=== PATIENT | female | born 1960 | race Caucasian/White ===

== ENCOUNTER 2021-05-05 12:42 | Outpatient (REF) | payer BC, SELFPAY ==
[2021-05-05 13:53] LABS: Appearance Urine HAZY; Color Urine STRAW; Glucose Urine UA NEG (NEG); Leukocyte Esterase Urine 3+ (NEG); Nitrite Urine NEG (NEG); Specific Gravity - Urine <= 1.005 (1.005-1.025); UACC Culture Trigger YES; Urine Blood 3+ (NEG); Urine Ketones 15 MG/DL (NEG); Urine Protein NEG (NEG-TRACE)
[2021-05-05 14:09] LABS: Bacteria Urine 2+ /LPF; Squamous Epithelial Cell Urine TRACE /LPF; WBC Urine 50-75 /HPF (0-4)
== END 2021-05-05 12:43 | disposition home or self-care (01) ==
LOC: HO.LAB 12:42
PROVIDERS: PCP Internal Medicine; Visit Provider Internal Medicine
DX: R30.0 Dysuria (principal)
CPT/HCPCS: 81001; 87086; 87088; 87186

== ENCOUNTER 2023-11-09 08:27 | Outpatient (AMB) | payer OTHER, SELFPAY ==
--- NOTE | 2023-11-09 08:49 | MHC.OFFWIV ---
Intake Vital Signs 11/09/23 09:10 Height 5 ft 2 in Weight 109 lb BMI 19.9 BP 120/76 Blood Pressure Location Lt brachial Position Sitting Pulse 76 Pulse Source Pulse Oximeter Temp 97.4 F Temp Source Temporal Artery Scan Pulse Oximetry (%) 99 Oxygen Delivery Method Room Air Intake Visit Reasons: EP RT hand injury due to fall Intake Note: pt is here today for rt hand injury due to fall started yesterday Patient Tobacco Use Status: Never used Tobacco Allergies morphine [MORPHINE] Allergy (Unknown, Verified 11/09/23 09:13) UNKNOWN Sulfa (Sulfonamide Antibiotics) Allergy (Unknown, Verified 11/09/23 09:13) Unknown sulfamethoxazole [From BACTRIM] Allergy (Unknown, Verified 11/09/23 09:13) UNKNOWN trimethoprim [From BACTRIM] Allergy (Unknown, Verified 11/09/23 09:13) UNKNOWN Erythromycin Allergy (Unknown, Uncoded 11/09/23 09:13) Unknown Do you need a note to return to daycare/school/sports/work: No HPI EP RT hand injury due to fall HPI Details Patient is a 63-year-old female she fell yesterday Tripped and fell on cement walkway injured her right hand it was not stretch Now having pain when she moves her fingers On examination her right hand is slightly swollen posteriorly over metacarpal pharyngeal joint There is no skin lesions no ecchymosis She is able to move her fingers and fingers are note painful with palpation Moving wrist does causes soreness at that site of swelling Sensory is intact, radial pulses 2+ Patient is left-handed Patient already have a wrist splint to immobilize her metacarpophalangeal joint which is helping her I have ordered x-ray with the patient Further management after the x-ray report [facility] Social History Patient Tobacco Use Status: Never used Tobacco Review of Systems Const All systems reviewed & are unremarkable except as noted in HPI and below Physical Exam Vital Signs: Last Vital Signs Temp 97.4 F 11/09/23 09:10 Pulse 76 11/09/23 09:10 BP 120/76 11/09/23 09:10 Pulse Ox 99 11/09/23 09:10 Oxygen Delivery Method Room Air 11/09/23 09:10 BMI result Body Mass Index 19.9 Const General: no acute distress Orientation/consciousness: patient oriented x3 Eyes General: appearance normal, both eyes and all related structures Resp Effort & Inspection: normal respiratory effort and able to speak in complete sentences Auscultation: clear to auscultation bilaterally Neuro General: patient oriented x3 Extrem Hand/finger images: 1. Swelling compared to left, able to move fingers, no pain with finger palpation, patient is feeling soreness at the site of swelling with the movement of wrist, sensory intact No skin ecchymosis noted Radial pulse 2 + Psych Mental Status: mental status grossly normal Assessment & Plan Assessment & Plan (1) Hand injury: Code(s): S69.90XA - Unspecified injury of unspecified wrist, hand and finger(s), initial encounter Qualifiers: Encounter type: initial encounter Laterality: right Qualified Code(s): S69.91XA - Unspecified injury of right wrist, hand and finger(s), initial encounter Plan Patient is a 63-year-old female she fell yesterday Tripped and fell on cement walkway injured her right hand it was not stretch Now having pain when she moves her fingers On examination her right hand is slightly swollen posteriorly over metacarpal pharyngeal joint There is no skin lesions no ecchymosis She is able to move her fingers and fingers are note painful with palpation Moving wrist does causes soreness at that site of swelling Sensory is intact, radial pulses 2+ Patient is left-handed Patient already have a wrist splint to immobilize her metacarpophalangeal joint which is helping her I have ordered x-ray with the patient Further management after the x-ray report Orders: Orders XR hand RT 2V Today S69.90XA - Unspecified injury of unspecified wrist, hand and finger(s), initial encounter Medications: Discontinued nitrofurantoin macrocrystal must administer with a meal/food Discontinued Reason: Patient no longer taking 100 mg PO Q12H 10 days 20 caps 0RF Coding Level of Care Code Est Pt Level 3 (71851) Diagnoses Injury of right hand, initial encounter S69.91XA Encounter type: initial encounter Laterality: right
[2023-11-09 09:10] VITALS: BP 120/76; PULSE 76; TEMP 36.3; O2SAT 99; BMI 19.9
== END 2023-11-09 09:53 | disposition home or self-care (01) ==
PROVIDERS: PCP Registered Nurse; Visit Provider Internal Medicine
DX: S69.91XA Unspecified injury of right wrist, hand and finger(s), initial encounter (principal)
CPT/HCPCS: 99213

== ENCOUNTER 2023-11-09 09:19 | Outpatient (REF) | payer OTHER, SELFPAY ==
--- NOTE | ~2023-11-09 | XR_ITS ---
EXAMINATION: XR HAND, RIGHT CLINICAL INFORMATION: Unspecified injury COMPARISON: None available. TECHNIQUE: PA, lateral, and oblique views of the right hand. FINDINGS: There is a nondisplaced spiral fracture through the shaft of the fourth metacarpal. The carpal metacarpal junction as well as the fourth MCP joints are not affected. No other fractures are seen. Carpal alignment is preserved. XR/XR hand RT 2V IMPRESSION: Fourth metacarpal fracture.
== END 2023-11-09 09:20 | disposition home or self-care (01) ==
LOC: HO.HMGCX 09:19
PROVIDERS: PCP Internal Medicine; Visit Provider Internal Medicine
DX: S69.90XA Unspecified injury of unspecified wrist, hand and finger(s), initial encounter (principal)
CPT/HCPCS: 73120

== ENCOUNTER 2023-11-15 12:46 | Outpatient (AMB) | payer OTHER, SELFPAY ==
--- NOTE | 2023-11-15 12:48 | A.OFFVIS_ITS ---
Vital Signs 11/15/23 12:50 Height 5 ft 2 in Weight 109 lb BMI 19.9 Handedness Left Intake Visit Reasons: fracture of unspecified metacarpal bone Intake Note: Diana is a 63 year old left hand dominant female presents today s/p tripping and falling in cement on 11/08/23. States she was getting her mail, stepped down off porch and rolled ankle and fell landing on her left hand. She was seen at [facility] in [place] on 11/09/23 where x-rays were taken. Patient has her own brace which was advised to be worn by the walk in clinic. Brace offers relief when on. She is unable to make a full closed fist. She is currently complaining of pain when she moves her 4th and 5th fingers. Denies numbness and tingling. Allergies morphine [MORPHINE] Allergy (Unknown, Verified 11/15/23 12:59) UNKNOWN Sulfa (Sulfonamide Antibiotics) Allergy (Unknown, Verified 11/15/23 12:59) Unknown sulfamethoxazole [From BACTRIM] Allergy (Unknown, Verified 11/15/23 12:59) UNKNOWN trimethoprim [From BACTRIM] Allergy (Unknown, Verified 11/15/23 12:59) UNKNOWN Erythromycin Allergy (Unknown, Uncoded 11/09/23 09:13) Unknown HPI HPI fracture of unspecified metacarpal bone: Details: Diana is a 63 year old right hand dominant woman who presents to discuss her right hand fracture after a fall, DOI: 11/08/23. She is seen today wearing a velcro wrist splint. She complains of pain when moving her fingers, particularly the ring & small fingers. She says she is not able to bring all her fingers into a fist. She denies any numbness or tingling. 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 She says most of her job is lightweight and involves computer use. She does not need a work note. 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 Review of Systems Const All systems reviewed & are unremarkable except as noted in HPI and below Physical Exam Vital Signs: BMI result Body Mass Index 19.9 Const General: cooperative, healthy appearing and no acute distress Orientation/consciousness: patient oriented x3 HEENT Head: Yes normocephalic and Yes atraumatic Eyes EOM: EOMs intact bilaterally Resp Effort & Inspection: normal respiratory effort and able to speak in complete sentences Cardio Jugular venous distension: no JVD Skin General skin exam: turgor normal Rashes: no rashes Neuro General: patient oriented x3 Extrem Other: Evaluation of Right Upper Extremity: The patient is alert, oriented, and in no acute distress Neuro: Median, Ulnar, Radial nerves motor and sensory intact and sensation is normal to the tips of all digits She has some resolving ecchymosis in her right palm, and only a small amount of swelling now. She does have her mother's wedding ring on the ring finger of her right hand. Evidently was quite a bit tighter before but as of now it can be turned fairly easily and is not terribly tight. She is tender to palpation directly over the 4th metacarpal shaft. No tenderness over the adjacent metacarpals, the fingers, over the wrist including the snuffbox and scaphoid tubercle. Smooth and painless wrist range of motion With encouragement I was able to get her to bring her fingers close to a weak fist and then back into extension. No rotational malalignment at this time Radiographs: 3 views of the right hand from 11/09/23, and new radiographs from today were reviewed by me today in clinic. They show a minimally displaced long spiral oblique 4th metacarpal shaft fracture, with satisfactory fracture alignment. No appreciable change in alignment on today's radiographs. Psych Appearance: grossly normal Affect: normal affect Attitude: cooperative Office Procedures Fracture Care Details: Fracture care [id number] Fracture Billing Code: Fracture Billing Code Assessment & Plan Assessment & Plan (1) Fracture of shaft of fourth metacarpal bone of right hand: Code(s): S62.324A - Displaced fracture of shaft of fourth metacarpal bone, right hand, initial encounter for closed fracture Category: Medical Plan Assessment & Plan: 1. Right 4th metacarpal shaft fracture, spiral oblique, minimally displaced From a fall, DOI: 11/08/23 I educated her about this condition I discussed operative and non-operative treatment options I recommend we manage this conservatively with splinting and selvin taping. I discussed activity modification, she is to lift nothing heavier than a cellphone for the next 4 weeks. She will work on gentle finger ROM exercises She is heading down to [employer] on Tuesday. I encouraged her to wear her selvin tape in her splint, and to be careful with her activities. 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 She has continued to work and does not require a note for work. She will follow up in 3 weeks, with X-rays 3V R hand if she has any concerns Scribed for Swapna Hill MD by Adam Wray, medical assembly, on 11/15/23 at 1:10 PM, EST. Orders: Orders XR hand RT min 3V Today M79.641 - Pain in right hand Coding Level of Care Code New Pt Level 4 (60630) Diagnoses Fracture of shaft of fourth metacarpal bone of right hand S62.324A CPT Codes Fracture Care - Fracture Billing Code: Fracture Billing Code ([id number])
[2023-11-15 12:50] VITALS: BMI 19.9
== END 2023-11-15 13:24 | disposition home or self-care (01) ==
LOC: HO.HOS 12:46
PROVIDERS: PCP Internal Medicine; Visit Provider Orthopaedic Surgery
DX: S62.324A Displaced fracture of shaft of fourth metacarpal bone, right hand, initial encounter for closed fracture (principal)
CPT/HCPCS: 26600; 99204

== ENCOUNTER 2023-11-15 12:46 | Outpatient (REF) | payer OTHER, SELFPAY ==
--- NOTE | ~2023-11-15 | XR_ITS ---
EXAMINATION: XR HAND, RIGHT CLINICAL INFORMATION: Pain in right hand COMPARISON: None available. TECHNIQUE: PA, lateral, and oblique views of the right hand. FINDINGS: There is a nondisplaced comminuted fracture of the shaft of the fourth metacarpal. Nonspecific cystic changes seen in the middle phalanx of the ring finger. Joint spaces are maintained. No erosions or soft tissue calcifications. XR/XR hand RT min 3V IMPRESSION: Nondisplaced comminuted fracture of the shaft of the fourth metacarpal.
== END 2023-11-15 12:47 | disposition home or self-care (01) ==
LOC: HO.HOSX 12:46
PROVIDERS: PCP Internal Medicine; Visit Provider Orthopaedic Surgery
DX: S62.324A Displaced fracture of shaft of fourth metacarpal bone, right hand, initial encounter for closed fracture (principal)
CPT/HCPCS: 26600; 73130

== ENCOUNTER 2023-12-07 09:06 | Outpatient (AMB) | payer OTHER, SELFPAY ==
--- NOTE | 2023-12-07 09:26 | A.OFFVIS_ITS ---
Intake Visit Reasons: OV- right 4th metacarpal fx, 11/08/23 Intake Note: Diana is a 63 yr old left hand dominant female presents today for her follow up visit for a ROM check for her Fracture of shaft of fourth metacarpal bone of right hand DOI 11/08/23. States she is getting better, however she was in a lot of pain on Tuesday. Patient reports that her ROM has gotten a little better. Allergies morphine [MORPHINE] Allergy (Unknown, Verified 11/15/23 12:59) UNKNOWN Sulfa (Sulfonamide Antibiotics) Allergy (Unknown, Verified 11/15/23 12:59) Unknown sulfamethoxazole [From BACTRIM] Allergy (Unknown, Verified 11/15/23 12:59) UNKNOWN trimethoprim [From BACTRIM] Allergy (Unknown, Verified 11/15/23 12:59) UNKNOWN Erythromycin Allergy (Unknown, Uncoded 11/09/23 09:13) Unknown HPI HPI OV- right 4th metacarpal fx, 11/08/23: Details: Diana is a 63 year old right hand dominant woman who returns to discuss her right 4th metacarpal shaft fracture, S/P fall, DOI: 11/08/23. She works in for [employer] & prior authorization. She says most of her job is lightweight and involves computer use. She does not need a work note. She says she is doing well, but had increased pain this past Tuesday night. She says her pain resolved by the next morning and she has been doing well. She has been working on gentle ROM exercises and feels she has improved somewhat She has been Andre-taping her fingers, as instructed She denies any numbness or tingling. 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 They show a minimally displaced long spiral oblique 4th metacarpal shaft fracture, with satisfactory fracture alignment & some evidence of interval bony healing. No appreciable change in alignment on today's radiographs. Assessment & Plan Assessment & Plan (1) Fracture of shaft of fourth metacarpal bone of right hand: Code(s): S62.324A - Displaced fracture of shaft of fourth metacarpal bone, right hand, initial encounter for closed fracture Category: Medical Plan Assessment & Plan: 1. Right 4th metacarpal shaft fracture, spiral oblique, minimally displaced From a fall, DOI: 11/08/23 I educated her about this condition She appears to be doing well. I discussed activity modification, she is able to begin using her hand for lightweight activities, but should continue to avoid any medium or heavy-weight activities for the next few weeks. She will continue to Andre-tape her fingers with daytime activities, she can remove this when at home, at rest or at night, for the next 2 weeks. She works here at [employer] in the PT department taking care of insurance prior authorization etc.. She has continued to work and does not require a note for work. She can follow up prn. She has happy with the current plan Scribed for Swapna Hill MD by Adam Wray, medical lab specialist, on 12/07/23 at 10:00 AM, EST. Orders: Orders XR hand RT min 3V Today M79.641 - Pain in right hand Coding Level of Care Code Global (78580) Diagnoses Fracture of shaft of fourth metacarpal bone of right hand S62.324A
== END 2023-12-07 10:25 | disposition home or self-care (01) ==
PROVIDERS: PCP Internal Medicine; Visit Provider Orthopaedic Surgery
DX: S62.324A Displaced fracture of shaft of fourth metacarpal bone, right hand, initial encounter for closed fracture (principal)
CPT/HCPCS: 99024

== ENCOUNTER 2023-12-07 09:06 | Outpatient (REF) | payer OTHER, SELFPAY ==
--- NOTE | ~2023-12-07 | XR_ITS ---
EXAMINATION: XR HAND, RIGHT CLINICAL INFORMATION: Pain in right hand, adjacent 4th metacarpal. Patient unable to remove ring from the 4th digit. COMPARISON: November 15, 2023 TECHNIQUE: PA, lateral, and oblique views of the right hand. FINDINGS: The bones are diffusely demineralized. Redemonstration of a comminuted fracture of the shaft of the 4th metacarpal with increased mild impaction/override. There is evidence of some bridging callus formation. XR/XR hand RT min 3V IMPRESSION: Redemonstration of a comminuted fracture of the shaft of the 4th metacarpal with increased mild impaction/override. There is evidence of some bridging callus formation.
== END 2023-12-07 09:07 | disposition home or self-care (01) ==
LOC: HO.HOSX 09:06
PROVIDERS: PCP Internal Medicine; Visit Provider Orthopaedic Surgery
DX: S62.324A Displaced fracture of shaft of fourth metacarpal bone, right hand, initial encounter for closed fracture (principal)
CPT/HCPCS: 73130

== ENCOUNTER 2023-12-26 09:01 | Outpatient (AMB) | payer OTHER, SELFPAY ==
--- NOTE | 2023-12-26 09:17 | MHC.PC.OV ---
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 Required: No Accompanied by: Self / Same As Patient Allergies morphine [MORPHINE] Allergy (Unknown, Verified 12/26/23 09:50) UNKNOWN Sulfa (Sulfonamide Antibiotics) Allergy (Unknown, Verified 12/26/23 09:50) Unknown sulfamethoxazole [From BACTRIM] Allergy (Unknown, Verified 12/26/23 09:50) UNKNOWN trimethoprim [From BACTRIM] Allergy (Unknown, Verified 12/26/23 09:50) UNKNOWN Erythromycin Allergy (Unknown, Uncoded 11/09/23 09:13) Unknown Tobacco use date assessed: 12/26/23 Dental Screening Dental Screen Date: 12/26/23 Did you have a dental visit in the last 12 months?: Yes Did you have a dental problem in the last 6 months where you did not have access to dental care?: No Was dental information given to patient?: Patient has dentist HPI HPI Comments History of Present Illness Details Azucena 63-year-old female with Vitamin d def, otherwise healthy Status post fracture of shaft of 4th metacarpal bone of right hand, fracture of metacarpal of right hand, cholecystectomy Health Maintenance: Colon last one was 10 years, reports it was normal. Does not want another one done d/t gas chest pain. Willing to do cologaurd. Mammo declined further imaging d/t fibrodense breasts; will look into Thermograms. PAP 2022 normal DEXA had one years ago, normal. Menopause age 40 we will wait on vitamin-D results. If abnormal we will consider reordering. Otherwise we will hold off at this time Tdap declines Specialists: Ortho Here today to establish care. Coming from [facility], no records available to me today. Had a fall in October and fractured her right hand and sprained her right ankle. While her hand is recovering well, supported by the orthopedic group, she continues to have right ankle and foot pain. Has edema on the top of her right foot after walking. He is very active. We will be going to [place] in February and wants to make sure that her foot and ankle are in good shape. Would like a referral to Physical therapy for further evaluation and treatment. Using bio identical hormones, from [facility] -- needs to refill. We will get me the information needed to send this refill in. Interested in routine lab screening. [facility] Medical History (Updated 12/26/23 @ 10:45 by Miriam Tim, [facility]) No pertinent past medical history Surgical History History of cholecystectomy Social History (Updated 12/26/23 @ 09:26 by Marylou Craig [facility]) Household Members: Spouse Both parents involved: No Caregiver staying overnight: No Housing: House Are you a primary care transition coordinator to a significant other at home: No Do you presently have visiting nurse or other home services: No 75 years or older and lives alone: No Alcohol intake: never Patient Tobacco Use Status: Never used Tobacco e-Cigarette/Vaping Use: Never Used service: No Current occupational status: employed 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 1. Little interest or pleasure in doing things: not at all 2. Feeling down, depressed, or hopeless: not at all 3. Trouble falling or staying asleep, or sleeping too much: not at all 4. Feeling tired or having little energy: not at all 5. Poor appetite or overeating: not at all 6. Feeling bad about yourself - or that you are a failure or have let yourself or your family down: not at all 7. Trouble concentrating on things, such as reading the newspaper or watching television: not at all 8. Moving or speaking so slowly that other people could have noticed. Or the opposite - being so fidgety or restless that you have been moving around a lot more than usual: not at all 9. Thoughts that you would be better off or of hurting yourself in some way: not at all Total score: 0 Depression Screening Interpretation: Negative Depression Screening Done: Yes 95263 - PHQ-9 Billing: Yes Source: Developed by Drs. Flavio Hanson, Arturo Montoya and colleagues, with an educational gabi from [employer]. Thrive Questionnaire Date Thrive assessed: 12/26/23 I am a: Patient What is your living situation today?: I have a steady place to live Within the past 12 months, did the food you bought not last and you didn't have the money to get more?: Never true Within the past 12 months, did you worry whether your food would run out before you got money to buy more?: Never true Do you have trouble paying for medicines?: No Do you have trouble getting transportation to medical appointments?: No Do you have trouble paying your heating and electricity bill?: No Do you have trouble taking care of your child, family member or friend?: No Do you have trouble with day-to-day activities such as bathing, preparing meals, shopping, managing finances, etc.?: No Are you currently unemployed and looking for a job?: No Are you interested in more education?: No Please select the resources that you would like help with: None Currently or been in a relationship where the following occur: no concerns reported THRIVE Score: 0 AUDIT C Alcohol Use Questionnaire (AUDIT-C) 1. How often do you have a drink containing alcohol?: Never 3. How often do you have six or more drinks on one occasion?: Never Total Score: 0 Score Reviewed/Action Taken: Yes GRACY-7 AMB Questionnaire GRACY-7 Date GRACY - 7 assessed: 12/26/23 Feeling nervous, anxious, or on edge: 0 = Not at all Not being able to stop or control worryin = Not at all Worrying too much about different things: 0 = Not at all Trouble relaxin = Not at all Being so restless that it is hard to sit still: 0 = Not at all Becoming easily annoyed or irritable: 0 = Not at all Feeling afraid as if something awful might happen: 0 = Not at all Total GRACY-7 score (0-4 normal; 5-9 mild; 10-14 moderate; 15-21 severe): 0 Source: Developed by Drs. Flavio Hanson, Arturo Montoya and colleagues, with an educational gabi from [employer]. Review of Systems Const All systems reviewed & are unremarkable except as noted in HPI and below Physical exam (Primary Care) Vital Signs: Last Vital Signs Temp 9.7 F L 12/26/23 09:18 Pulse 62 12/26/23 09:18 Resp 14 12/26/23 09:18 BP 116/62 12/26/23 09:18 Pulse Ox 99 12/26/23 09:18 Oxygen Delivery Method Room Air 12/26/23 09:18 BMI result Body Mass Index 20.3 Tobacco/Smoking Status: Tobacco use Status Tobacco use date assessed 12/26/23 12/26/23 09:27 Patient Tobacco Use Status Never used Tobacco 12/26/23 09:26 e-Cigarette/Vaping Use Never Used 12/26/23 09:27 PHQ-9: PHQ-9 Score PHQ-9: Total score 0 12/26/23 10:17 Depression Screening Interpretation: Negative Thrive Assessment: Date of Thrive Assessment Date Thrive assessed 12/26/23 12/26/23 09:27 Currently or been in a relationship where the following occur: no concerns reported Const Other: Awake alert oriented, pleasant Mucous membranes moist Regular rate and rhythm Lung sounds clear to auscultation bilat No edema bilateral lower extremities Assessment and Plan Assessment & Plan (1) Right foot pain: Code(s): M79.671 - Pain in right foot (2) Right ankle pain: Code(s): M25.571 - Pain in right ankle and joints of right foot Qualifiers: Chronicity: chronic Qualified Code(s): M25.571 - Pain in right ankle and joints of right foot; G89.29 - Other chronic pain (3) Laboratory exam ordered as part of routine general medical examination: Code(s): Z00.00 - Encounter for general adult medical examination without abnormal findings Plan: This note is constructed using voice recognition software. While every effort has been made to ensure accuracy in resource development manager, still errors may have been included Sometimes, these errors may affect the content or meaning of the given sentence . Total time spent caring for the patient today was 40 minutes. This includes time spent before the visit reviewing the chart, time spent during the visit, and time spent after the visit on documentation Orders: Orders PT Evaluation and Treatment Today M25.571 - Pain in right ankle and joints of right foot, M79.671 - Pain in right foot Comprehensive [place]. Panel Fast Today Z00.00 - Encounter for general adult medical examination without abnormal findings Hemoglobin A1c Today Z00.00 - Encounter for general adult medical examination without abnormal findings Microalbumin, Random (w Creat) Today Z00.00 - Encounter for general adult medical examination without abnormal findings Vitamin B12 and Folate Today Z00.00 - Encounter for general adult medical examination without abnormal findings IRON PROFILE Today Z00.00 - Encounter for general adult medical examination without abnormal findings Lipid Panel Today Z00.00 - Encounter for general adult medical examination without abnormal findings TSH reflex Free T4 Today Z00.00 - Encounter for general adult medical examination without abnormal findings Vitamin D 1,25 dihydroxy Today Z00.00 - Encounter for general adult medical examination without abnormal findings Complete Blood Count no Diff Today Z00.00 - Encounter for general adult medical examination without abnormal findings Referrals Cologuard Test Z12.11 - Encounter for screening for malignant neoplasm of colon, Z12.12 - Encounter for screening for malignant neoplasm of rectum Patient Instructions: Please request records from [facility] to be sent to me for review. Cologuard test ordered today. We will consider a bone density once your vitamin-D levels are back. If deficient we will encourage this screening for osteoporosis. Fasting labs for generalized screening ordered. Declined Tdap, mammogram, colonoscopy. Interested in thermogram for breast screening and we will get me information on this. Please get me the information for your bio identical hormones so that i may refill this for you as well. Physical therapy order placed today for evaluation and treatment of the right foot and ankle pain. Return to office in about 4 weeks for lab review and a complete physical exam. Sooner as needed. Review Patient declined Mammogram: 12/26/23 Patient declined Colonoscopy: 12/26/23 Declined TDap/Td: 12/26/23 Coding Level of Care Code Est Pt Level 5 (01911) Diagnoses Right foot pain M79.671 Chronic pain of right ankle M25.571; G89.29 Chronicity: chronic Laboratory exam ordered as part of routine general medical examination Z00.00
[2023-12-26 09:18] VITALS: BP 116/62; PULSE 62; RESP 14; TEMP -12.4; TEMP 9.7; O2SAT 99; BMI 20.3
== END 2023-12-26 09:59 | disposition home or self-care (01) ==
PROVIDERS: PCP Nurse Practitioner Family; Visit Provider Nurse Practitioner Family
DX: M25.571 Pain in right ankle and joints of right foot (principal); G89.29 Other chronic pain
CPT/HCPCS: 99215

== ENCOUNTER 2023-12-29 06:39 | Outpatient (REF) | payer OTHER, SELFPAY ==
[2023-12-29 07:40] LABS: Hemoglobin 13.8 g/dl (12.0-16.0); Mean Corpuscular HGB Conc 32.9 g/dl (31.0-35.0); Mean Corpuscular Hemoglobin 28.6 pg (27.0-33.0); Mean Corpuscular Volume 87.1 fL (80.0-98.0); Mean Platelet Volume 10.4 fL (9.4-12.3); Platelet Count 150 X10*3/uL (160-400); Red Blood Count 4.82 X10*6/uL (4.20-5.50); Red Cell Distribution Width 12.3 % (11.0-16.0); White Blood Count 3.4 X10*3/uL (4.8-10.8)
[2023-12-29 07:52] LABS: Estimated Average Glucose 100 mg/dL; Hemoglobin A1c % 5.1 % (<6.0)
[2023-12-29 08:23] LABS: Alanine Aminotransferase 18 U/L (0-31); Albumin Level 4.1 g/dL (3.5-5.0); Alkaline Phosphatase 108 U/L (39-117); Anion Gap 10 (12-20); Aspartate Amino Transferase 22 U/L (5-31); Bilirubin Total 0.5 mg/dL (0.0-1.0); Blood Urea Nitrogen 15 mg/dL (9-16); Calcium 9.3 mg/dL (8.4-10.2); Carbon Dioxide 30 mmol/L (22-29); Chloride 107 mmol/L (96-108); Cholesterol 188 mg/dL (<200); Estimated Glomerular Filt Rate > 60; Glucose Fasting 90 mg/dL (60-99); HDL Cholesterol 62 mg/dL (>40); Iron 78 mcg/dL (30-160); LDL Cholesterol Calculated 114 mg/dL (<100); Percent Iron Saturation 24 % (15-50); Potassium 4.2 mmol/L (3.3-5.1); Sodium 143 mmol/L (135-145); Total Iron Binding Capacity 320 mcg/dL (228-428); Total Protein 6.6 g/dL (6.5-8.0); Triglycerides 60 mg/dL (<150); Unsaturated Iron Binding 242 ug/dL
[2023-12-29 08:39] LABS: TSH reflex Free T4 2.22 uIU/mL (0.32-4.0)
[2023-12-29 08:47] LABS: Folate 9.9 ng/mL (> or = 4.0); Vitamin B12 1123 pg/mL (200-900)
[2023-12-29 11:40] LABS: Creatinine Urine 126.32 mg/dL; Microalbum/Creatinine Ratio Ur 5.5 ug/mg cr (<30)
[2024-01-03 02:54] LABS: VITAMIN D (1,25 OH) D3 44 pg/mL; Vit D (1,25-Dihydroxy) Total 44 pg/mL (18-72); Vitamin D (1,25 OH) D2 <8 pg/mL
== END 2023-12-29 06:40 | disposition home or self-care (01) ==
LOC: HO.LAB 06:39
PROVIDERS: PCP Nurse Practitioner Family; Visit Provider Nurse Practitioner Family
DX: Z00.00 Encounter for general adult medical examination without abnormal findings (principal); Z13.89 Encounter for screening for other disorder; Z13.1 Encounter for screening for diabetes mellitus
CPT/HCPCS: 36415; 80053; 80061; 82043; 82570; 82607; 82652; 82746; 83036; 83540; 84443; 85027

== ENCOUNTER 2024-03-21 12:17 | Outpatient (AMB) | payer OTHER, SELFPAY ==
--- NOTE | 2024-03-21 12:18 | MHC.PC.OV ---
Vital Signs 03/21/24 12:20 Height 5 ft 2 in Weight 109 lb 2 oz BMI 20.0 BP 98/58 L Blood Pressure Location Lt brachial Position Sitting Respiration 14 Pulse 97 Pulse Source Pulse Oximeter Pulse Oximetry (%) 99 Oxygen Delivery Method Room Air Intake Visit Reasons: 4 weeks for CPE Intake Note: patient is here for a physical Allergies morphine [MORPHINE] Allergy (Unknown, Verified 03/21/24 12:54) UNKNOWN Sulfa (Sulfonamide Antibiotics) Allergy (Unknown, Verified 03/21/24 12:54) Unknown sulfamethoxazole [From BACTRIM] Allergy (Unknown, Verified 03/21/24 12:54) UNKNOWN trimethoprim [From BACTRIM] Allergy (Unknown, Verified 03/21/24 12:54) UNKNOWN Erythromycin Allergy (Unknown, Uncoded 11/09/23 09:13) Unknown Medication List - Last Reconciled 03/21/24 by DAT Lockhart- No Known Home Meds Tobacco use date assessed: 12/26/23 Dental Screening Dental Screen Date: 12/26/23 HPI HPI Comments History of Present Illness Details Azucena 63-year-old female with Vitamin d def, hemorrhoids, GERD, gluten sensitivity, sensitivity to anesthesia Status post fracture of shaft of 4th metacarpal bone of right hand, fracture of metacarpal of right hand, cholecystectomy Social: 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 Does not want another one done d/t gas chest pain. Willing to do cologaurd - pending. Mammo declined further imaging d/t fibrodense breasts; will look into Thermograms. PAP 2022 normal DEXA had one years ago, normal. Menopause age 40 , normal vitamin-D results. Tdap declines Specialists: Ortho Optho Here today for CPE Feels well. Making healthy choices. Right foot and ankle feeling better. Completed PT. Labs from 12/29/2023 shown low WBC 3.4, low platelet 150 otherwise normal CBC, normal CMP, hemoglobin A1c 5.1%, normal iron profile, total cholesterol 188, LDL 114, triglycerides 60, HDL 62, elevated B12 1123, normal vitamin-D, normal TSH and folate, normal urine microalbumin creatinine ratio Vit D2 low - d3 and total normal - no need for dexa (body making enough) Optho - appt tomorrow. Right eye tearing, last few months feels more so. Feels itchy, too. Wears glasses Skin - No worries. Diet - well balanced and healthy. Normal elimination patterns. Mood is good. Still looking into info for Thermogram and let me know. Was on PPI in the past for GERD. Found to be gluten sensitive. Avoids gluten in his feeling fine without PPI. Hemorrhoids are well controlled. She does report that she has sensitivity to anesthesia, reports it is something genetic as her father and 2 of her children have the same problem. Reports that they can not wake up once put under. Plan: Try Monona Bergamont for cholesterol and we can repeat your labs in the future. Although your lipids look good. Try to reduce b supplement to every other day as values are a little high. No needs for DEXA and Vit D looks great. Return to office in 4-6 months with repeat lipids done 1 week before, sooner as needed. [facility] [address] [place] [id number] Estriol/Estradiol/Progesterone 2/0.5/50mg/ml Apply 2 clicks 0.5ml transdermally twice per day 30ml This RX was printed and mailed home for you to send to the pharmacy. [facility] Medical History (Updated 03/21/24 @ 14:48 by [facility] Hand injury Fracture of metacarpal of right hand, closed Fracture of shaft of fourth metacarpal bone of right hand Right foot pain Right ankle pain No pertinent past medical history Surgical History History of cholecystectomy Social History (Updated 12/26/23 @ 09:26 by Marylou Craig [facility]) Household Members: Spouse Both parents involved: No Caregiver staying overnight: No Housing: House Are you a primary career coach to a significant other at home: No Do you presently have visiting nurse or other home services: No 75 years or older and lives alone: No Alcohol intake: never Patient Tobacco Use Status: Never used Tobacco e-Cigarette/Vaping Use: Never Used service: No Current occupational status: employed 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 Flavio Hanson, Marialuisa Bacon, Arturo Alonzo and colleagues, with an educational gabi from [employer]. Review of Systems Const Details: Constitutional: Denies fever. Skin: Denies rash. Eye: Denies eye pain. ENMT: Denies sore throat and nasal congestion. Respiratory: Denies shortness of breath and cough. Gastrointestinal: Denies nausea, vomiting or abdominal pain. Cardiovascular: Denies chest pain and syncope. Genitourinary: Denies dysuria. Musculoskeletal: Denies back pain and extremity pain. Neurologic: Denies headaches, confusion, and weakness. Psychiatric: Denies suicidal thoughts and substance abuse. Allergy/ Immunologic: Denies impaired immunity. Physical exam (Primary Care) Vital Signs: Last Vital Signs Pulse 97 03/21/24 12:20 Resp 14 03/21/24 12:20 BP 98/58 L 03/21/24 12:20 Pulse Ox 99 03/21/24 12:20 Oxygen Delivery Method Room Air 03/21/24 12:20 BMI result Body Mass Index 20.0 Tobacco/Smoking Status: Tobacco use Status Tobacco use date assessed 12/26/23 03/21/24 12:18 Patient Tobacco Use Status Never used Tobacco 03/21/24 12:18 e-Cigarette/Vaping Use Never Used 03/21/24 12:18 Thrive Assessment: Date of Thrive Assessment Date Thrive assessed 12/26/23 03/21/24 12:18 Const Other: General: Well developed, well nourished, in no acute distress. Appears stated age. Head: Normocephalic, atraumatic. Eyes: Pupils are equal, round and reactive to light and accommodation. Conjunctivae are clear. Vision grossly normal. Ears: TMs clear AU, EACS WNL Nose: Patent, without discharge. Mouth: There are no ulcers or lesions noted. No inflammation, no post nasal drip, no plaques nor exudates. Neck: Supple, no adenopathy or thyromegaly. Lungs: Clear to auscultation bilaterally. No rales, rhonchi or wheeze noted. Good air flow in all [place]. Heart: Regular rate and rhythm. No murmurs, click, rubs or gallops are noted. Abdomen: Bowel sounds present in all quadrants. The abdomen is soft, nontender, with no masses or organomegaly noted. No hernias are noted. Musculoskeletal: Joints are nontender, without swelling, redness, or effusions. Range of motion is observed to be normal. Pulses: Peripheral pulses are equal and palpable bilaterally. Extremities: No clubbing, cyanosis nor edema is noted. Neurologic: Gait and station normal. Cranial Nerves 2-12 intact. Motor strength grossly symmetrical and intact. No sensory loss. Balance normal. Skin: No rashes, ulcers, or lesions noted. Turgor is good. Skin color is good. Hair and nails are without abnormalities. Psych: Normal eye contact, affect and mood appropriate, and normal interactions. Patient is alert and appropriate to context. Assessment and Plan Assessment & Plan (1) Encounter for general adult medical examination without abnormal findings: Code(s): Z00.00 - Encounter for general adult medical examination without abnormal findings (2) Borderline high cholesterol: Code(s): E78.9 - Disorder of lipoprotein metabolism, unspecified (3) Menopause: Code(s): Z78.0 - Asymptomatic menopausal state (4) GERD without esophagitis: Code(s): K21.9 - Gastro-esophageal reflux disease without esophagitis (5) NCGS (non-celiac gluten sensitivity): Code(s): K90.41 - Non-celiac gluten sensitivity (6) Anesthesia complication: Code(s): T88.59XA - Other complications of anesthesia, initial encounter Qualifiers: Encounter type: sequela Qualified Code(s): T88.59XS - Other complications of anesthesia, sequela Orders: Orders Lipid Panel 08/12/24 E78.9 - Disorder of lipoprotein metabolism, unspecified Medications: New [Estriol/Estradiol/Progesterone] Estriol/Estradiol/Progesterone 2/0.5/50mg/ml Apply 2 clicks 0.5ml transdermally twice per day 30ml 0.5 mL transdermal BID 30 days 30 mL 11RF Coding Level of Care Code Est Pt Prev Care 40-64y(84491) Diagnoses Encounter for general adult medical examination without abnormal findings Z00.00 Borderline high cholesterol E78.9 Menopause Z78.0 GERD without esophagitis K21.9 NCGS (non-celiac gluten sensitivity) K90.41 Complication of anesthesia, sequela T88.59XS Encounter type: sequela
[2024-03-21 12:20] VITALS: BP 98/58; PULSE 97; RESP 14; O2SAT 99
== END 2024-03-21 13:25 | disposition home or self-care (01) ==
PROVIDERS: PCP Nurse Practitioner Family; Visit Provider Nurse Practitioner Family
DX: Z00.00 Encounter for general adult medical examination without abnormal findings (principal); E78.9 Disorder of lipoprotein metabolism, unspecified; Z78.0 Asymptomatic menopausal state; K21.9 Gastro-esophageal reflux disease without esophagitis; K90.41 Non-celiac gluten sensitivity; T88.59XS Other complications of anesthesia, sequela
CPT/HCPCS: 99396